=== PATIENT | female | born 1995 | race Caucasian/White ===

== ENCOUNTER 2017-11-28 19:55 | Emergency (ER) | payer MEDICAID ==
[2017-11-28 20:00] VITALS: Ht 162.6 cm
[2017-11-28 21:04] LABS: BASOPHIL % 1.6 % (0-2); PLATELET COUNT 251 x10^3mcL (130-400); RED CELL DISTRIBUTION WIDTH 13.2 % (11.5-14.5)
[2017-11-28 22:36] VITALS: BP 113/69
== END 2017-11-28 22:37 | disposition home or self-care (01) ==
LOC: ED 19:55
PROVIDERS: Emergency Medicine
DX: O20.0 Threatened abortion (principal)
CPT/HCPCS: 36415

== ENCOUNTER 2017-11-30 09:42 | Emergency (ER) | payer MEDICAID ==
[~2017-11-30] VITALS: Ht 162.6 cm; Wt 55.3 kg
[2017-11-30 09:56] VITALS: BP 111/64; Ht 162.6 cm; Wt 55.3 kg
== END 2017-11-30 13:11 | disposition home or self-care (01) ==
LOC: ED 09:42
DX: O02.81 Inappropriate change in quantitative human chorionic gonadotropin (hCG) in early pregnancy (principal); R10.30 Lower abdominal pain, unspecified; Z3A.01 Less than 8 weeks gestation of pregnancy

== ENCOUNTER 2018-02-04 14:07 | Emergency (ER) | payer SELFPAY ==
[~2018-02-04] VITALS: Ht 165.1 cm; Wt 59.0 kg
[2018-02-04 14:10] VITALS: Ht 165.1 cm; Wt 59.0 kg
[2018-02-04 15:46] LABS: BASOPHIL % 1.5 % (0-2); PLATELET COUNT 218 x10^3mcL (130-400); RED CELL DISTRIBUTION WIDTH 12.9 % (11.5-14.5)
[2018-02-04 17:15] VITALS: BP 113/63
== END 2018-02-04 17:15 | disposition home or self-care (01) ==
LOC: ED 14:07
PROVIDERS: Emergency Medicine
DX: O20.0 Threatened abortion (principal)
CPT/HCPCS: 36415